=== PATIENT | female | born 1955 | race Caucasian/White ===

== ENCOUNTER 2023-11-18 11:01 | Inpatient (IN) | payer MEDICARE, SELFPAY ==
[2023-11-18] VITALS (11 sets, daily range): BP systolic 80–107; BP diastolic 48–67; PULSE 89–121; RESP 20–35; TEMP 35.3–36.5; O2SAT 97–100; BMI 22.4; BMI 22.6
--- NOTE | ~2023-11-18 | CT_ITS ---
EXAMINATION: CT ANGIOGRAPHY LEGS WITH RUNOFF CLINICAL INFORMATION: Right lower extremity pain. Cold extremity. No palpable pulses. COMPARISON: None available. TECHNIQUE: Axial imaging was performed through the abdomen, pelvis and bilateral lower extremities at the administration of 100 and mL Omnipaque 350 IV contrast. Reformatted coronal, sagittal and MIP images were provided for interpretation. This CT examination was performed using dose optimization techniques as appropriate, variously including the following: *Automated exposure control *Adjustment of mA and/or kV according to patient size (this includes techniques or standardized protocols for targeted exams where dose is matched to indication/reason for exam; i.e. extremities or head) *Use of iterative reconstruction technique DLP: 249 mGy-cm FINDINGS: Vascular findings: Visualized portions of the distal descending thoracic aorta are normal in caliber. The suprarenal abdominal aorta is normal in caliber demonstrating only minimal atherosclerotic disease. The celiac access and superior mesenteric artery demonstrated widely patent takeoff from the aorta. Bilateral renal arteries are widely patent. The infrarenal abdominal aorta is normal in caliber but demonstrates a moderate amount of calcified and noncalcified plaque resulting in mild to moderate intraluminal narrowing within the inferior most aspect of the abdominal aorta. There is a short segment (1.5 cm) complete occlusion involving the proximal most portion of the right common iliac artery. There is reconstitution at the bifurcation of the right internal and external iliac arteries. The right internal iliac artery is severely diseased but patent. The right external iliac artery demonstrates mild to moderate scattered stenoses but is patent. The right common femoral artery is patent but demonstrates mild to moderate stenoses. The right profundus femoris artery is patent. There is moderate to severe stenosis involving the proximal portion of the right superficial femoral artery. The remainder of the right superficial femoral artery appears widely patent. The right popliteal artery is widely patent. There is a three-vessel runoff into the distal calf. There is a mild stenosis of the takeoff of the left common iliac artery. The left internal iliac artery is diseased but patent. There is overall moderate to severe narrowing of a patent left external iliac artery. The left common femoral artery demonstrates mild to moderate stenosis but is patent. Left profundus femoris artery is patent. The left superficial femoral artery demonstrates a localized area of moderate stenosis distally but is otherwise patent. The left popliteal artery is patent. There is a three-vessel runoff of the left lower extremity into the distal calf. Nonvascular findings: Visualized lung bases are well aerated. There is some mild groundglass within the lingula which is nonspecific. A few small cystic foci are noted within the lung bases. There is overall heterogeneous attenuation of the liver with numerous suspected superimposed hepatic lesions. The gallbladder is normal in appearance. The pancreas is normal in appearance. Abnormal appearance of the spleen. The spleen is enlarged measuring approximately 14.3 cm in craniocaudal dimension. There are what appears to be superimposed hypodense lesions within the spleen with a possible perisplenic hematoma laterally. There are bilateral adrenal gland masses measuring 8.3 cm on the right and 3.4 cm on the left. Both kidneys demonstrate several cortical geographic hypodense foci which are nonspecific. There is no gross hydronephrosis of either kidney. Normal caliber loops of small and large bowel. Mild abdominal and moderate pelvic ascites noted. Mild retroperitoneal lymphadenopathy. The bladder is normal in appearance. The uterus is either atrophic or surgically absent. No gross inguinal lymphadenopathy. Diffuse osteopenia. Mild to moderate degenerative changes of the spine. There is a 3 cm soft tissue lesion lateral to the left ninth rib with some associated cortical irregularity of the rib, concerning for a metastatic focus. CT/CT angio abd aorta runoff IMPRESSION: 1. Short segment (1.5 cm) complete occlusion involving the proximal most portion of the right common iliac artery. There is reconstitution at the bifurcation of the right internal and external iliac arteries. 2. Moderate to severe stenosis involving the proximal portion of the right superficial femoral artery. The remainder of the right superficial femoral artery appears widely patent. There is a three-vessel runoff into the distal right calf. 3. Mild stenosis of the takeoff of the left common iliac artery. There is a localized area of moderate stenosis involving the left superficial femoral artery distally but it is otherwise patent. There is a three-vessel runoff of the left lower extremity into the distal left calf. 4. Heterogeneous attenuation of the liver with numerous suspected superimposed hepatic lesions. Findings are concerning for metastatic disease. 5. Bilateral adrenal gland masses concerning for metastatic disease. 6. Abnormal appearance of the spleen with what appears to be superimposed hypodense lesions within the spleen with a possible perisplenic hematoma laterally. Findings are again concerning for metastatic disease. 7. Both kidneys demonstrate several cortical geographic hypodense foci which are nonspecific. Metastatic foci are not excluded. 8. Mild abdominal and moderate pelvic ascites. 9. 3 cm soft tissue lesion lateral to the left ninth rib with some associated cortical irregularity of the rib, concerning for a metastatic focus. Given above findings, PET imaging may be warranted. This Critical Result was discussed with KASHIF Paz at 1:15 PM on November 18, 2023 and it was ascertained that the content and urgency of the report was understood at the time of direct communication.
--- NOTE | ~2023-11-18 | CT_ITS ---
EXAMINATION: CT ANGIOGRAM OF THE CHEST WITH AND WITHOUT CONTRAST (CT PULMONARY ANGIOGRAM FOR PE) CLINICAL INFORMATION: Reason for Exam SOB, known lung mass COMPARISON: None available. TECHNIQUE: Prior to contrast administration, noncontrast localization images were obtained. Subsequently, multidetector volumetric imaging was performed from the thoracic inlet to below the diaphragms following the administration of 65 mL Omnipaque 350 intravenous contrast. No contrast reaction reported Sagittal, coronal, and MIP oblique sagittal reformatted images were obtained on the CT workstation, uploaded to PACS, and reviewed. This CT examination was performed using dose optimization techniques as appropriate, variously including the following: *Automated exposure control *Adjustment of mA and/or kV according to patient size (this includes techniques or standardized protocols for targeted exams where dose is matched to indication/reason for exam; i.e. extremities or head) *Use of iterative reconstruction technique Total exam dose-length product 191 mGy-cm FINDINGS: QUALITY OF STUDY/CONTRAST BOLUS: Satisfactory. PULMONARY ARTERIES: No pulmonary emboli. THORACIC AORTA: No aneurysm. Fibrofatty plaque thrombus protruding into the descending thoracic aorta at multiple levels. LUNG: Large left upper lobe lung mass measuring 8.2 x 8.5 x 8 cm. The mass invades into the adjacent mediastinum at the level of the AP window. Several pulmonary arterial branches are occluded as they pass into or adjacent to this mass. There is a satellite lesion superior to this mass measuring 1.7 x 1.2 x 2.1 cm. Linear tree-in-bud nodules noted inferior and posterior to the main mass. Groundglass opacities surrounding the large left upper lobe mass. Spiculated nodule in the right upper lobe measuring 1.7 x 1.6 x 1.4 cm. This this nodule extends to the major fissure. There is fissural thickening. Centrilobular and paraseptal emphysema. Biapical nodular scarring. PLEURA: No pleural effusion or pneumothorax. MEDIASTINUM: Normal heart size. No pericardial effusion. Enlarged subcarinal lymph node measuring 1.3 cm in short axis. No evidence of septal bowing or right heart strain. CORONARY ARTERY CALCIFICATION: Mild CHEST WALL/AXILLA: No axillary lymphadenopathy. Subcutaneous nodule in measuring 2.1 x 1.6 cm, likely a sebaceous cyst. OSSEOUS STRUCTURES: No acute or suspicious osseous abnormality. UPPER ABDOMEN: Heterogeneous appearance of the liver with innumerable hypodense lesions throughout the liver. Partially visualized bilateral adrenal gland masses measuring 8.3 cm on the right and 3.4 cm on the left. Heterogeneous appearance of the visualized spleen, with what appear to be multiple hypodense lesions. The left kidney is partially visualized and demonstrates multiple peripheral wedge-shaped hypoenhancing regions. No reflux of contrast into the hepatic veins to suggest elevated right heart pressures. CT/CT angio chest PE protocol IMPRESSION: 1. No pulmonary embolism. 2. Findings concerning for metastatic lung cancer including a large left upper lobe mass measuring up to 2.5 cm and invading the mediastinum. Additional nodules noted in the left and right upper lobes. Linear tree-in-bud nodularity inferior to the dominant mass concerning for lymphangitic spread. 3. Findings consistent with solid organ metastases including innumerable hepatic lesions, bilateral adrenal masses, and splenic lesions. 4. Partially visualized left kidney with multiple wedge-shaped hypoenhancing areas peripherally concerning for infarcts. 5. Thrombus versus fibrofatty plaque protruding into the descending thoracic aorta multiple levels. VTE: negative
--- NOTE | ~2023-11-18 | XR_ITS ---
EXAMINATION: PORTABLE CHEST 1 VIEW CLINICAL INFORMATION: cp. COMPARISON: No recent pertinent prior studies are available for comparison. TECHNIQUE: Portable frontal view of the chest was obtained. FINDINGS: There is a large masslike opacity overlying the left upper lobe and left perihilar region. This measures up to 8.6 cm in size. Malignancy would be strongly favored with this appearance. Dedicated CT scan of the chest is warranted to evaluate this further. This is superimposed on chronic appearing coarsened reticular markings otherwise. No significant effusion or overt edema. Mild biapical scarring suggested. Cardiac silhouette within normal limits for size. No acute bony abnormality identified. XR/XR chest 1V IMPRESSION: Large masslike opacity overlying the left upper lobe and left perihilar region. Malignancy would be strongly favored with this appearance. Dedicated CT scan of the chest is warranted to evaluate this further. This is superimposed on chronic appearing changes. This critical result was discussed with Dr Villatoro at 11/18/2023 12:21 PM and it was ascertained that the content and urgency of the report was understood at the time of direct communication.
--- NOTE | 2023-11-18 11:07 | ECG_ITS ---
Test Reason : SEPTIC Blood Pressure : / mmHG Vent. Rate : 102 BPM Atrial Rate : 102 BPM P-R Int : 132 ms QRS Dur : 056 ms QT Int : 366 ms P-R-T Axes : 088 081 083 degrees QTc Int : 477 ms Poor data quality Sinus tachycardia with Premature supraventricular complexes Nonspecific ST abnormality Abnormal ECG No previous ECGs available Repeat EKG Referred By: Generic ED Physician Electronically Signed By:CHANO OREILLY MD
--- NOTE | 2023-11-18 11:24 | ED_ITS ---
HPI - General Adult General Chief complaint: Nausea/Vomiting/Diarrhea Stated complaint: ABD PAIN VOMITING NAUSEA COUGH Time Seen by Provider: 11/18/23 11:17 Source: patient and EMS Mode of arrival: EMS History of Present Illness HPI narrative: 68-year-old female, current everyday smoker, unexplained weight loss, otherwise denies any past medical history and denies any prescription medications who comes in with nausea, vomiting and significant right lower leg pain and as per EMS low blood pressure. Related Data Allergies Allergy/AdvReac Type Severity Reaction Status Date / Time No Known Allergies Allergy Verified 11/18/23 11:17 Review of Systems 2 Review of Systems: Pertinent positives and negatives as stated in HPI [facility] Past Medical History Source: nursing notes reviewed Social History Social History Smoked in Last 30 Days: Yes Advance Directives: No Advance Directives Information Provided: Yes Physical Exam ED Vital Signs: Vital Signs - 24 hr 11/18/23 11:19 11/18/23 12:25 11/18/23 12:57 Temperature 95.5 F L Pulse Rate 121 H 89 99 Respiratory Rate 20 24 H Blood Pressure 85/53 L 101/60 107/64 Pulse Oximetry 99 Oxygen Delivery Method Room Air Oxygen Flow Rate 11/18/23 13:07 11/18/23 13:20 11/18/23 13:28 Temperature 97.5 F 97.7 F Pulse Rate 98 113 H 105 H Respiratory Rate 28 H 27 H Blood Pressure 90/58 L 96/63 85/52 L Pulse Oximetry 98 100 Oxygen Delivery Method Room Air Room Air Oxygen Flow Rate 11/18/23 13:55 11/18/23 14:36 11/18/23 14:51 Temperature 97.5 F 97.0 F 95.9 F L Pulse Rate 105 H 105 H 104 H Respiratory Rate 35 H 22 H 28 H Blood Pressure 105/67 96/56 L 84/48 L Pulse Oximetry 97 100 100 Oxygen Delivery Method Nasal Cannula Nasal Cannula Nasal Cannula Oxygen Flow Rate 2 2 2 BMI result Body Mass Index 22.4 VITAL SIGNS: Reviewed. GENERAL: Cachectic, in no moderate distress. HEAD: Normocephalic/atraumatic EYES: PERRLA, EOMI EARS: Ext canals without abnormality NOSE: Nares patent bilateral OROPHARYNX: no oral lesions noted, posterior pharynx clear NECK: Supple, no adenopathy LUNGS: Normal breath sounds. No adventitious sounds or accessory muscle use. SpO2<99> CARDIOVASCULAR: Regular rate and rhythm without noted murmurs ABDOMEN: Soft, non-tender, non-distended with bowel sounds. MUSCULOSKELETAL: No tenderness, deformities, or effusions noted on gross inspection. EXTREMITIES: No cyanosis, clubbing or edema. Both lower extremities are cool to touch, right greater than left, unable to palpate pulses and on evaluation with Doppler unable to obtain AT/PT SKIN: Inspection of the skin reveals no rashes NEUROLOGIC: Alert and oriented x 4. Strength and sensation to light touch were grossly intact x 4. Medications Administered Discontinued Medications Generic Name Dose Route Start Last Admin Trade Name Freq PRN Reason Stop Dose Admin Fentanyl 25 mcg 11/18/23 13:07 11/18/23 13:17 Fentanyl Citrate/Pf 100 Mcg/2 Ml Vial IVPUSH 11/18/23 13:08 25 mcg ONCE ONE Administration Protocol Cefepime HCl 1 gm/ Sodium 50 mls @ 100 mls/hr 11/18/23 11:17 11/18/23 12:11 Chloride IV 11/18/23 11:46 Infused ONCE ONE Infusion Sodium Chloride 1,722 mls @ 1,722 mls/hr 11/18/23 11:17 11/18/23 13:19 Ns 30 ml/kg infuse over 1 hr (1722 ml) 11/18/23 12:16 Infused IV Infusion .Q1H STA Sodium Chloride 1,000 mls @ 999 mls/hr 11/18/23 13:45 11/18/23 14:36 Ns IV 11/18/23 14:45 Infused .Q1H1M VIKAS Infusion Iohexol 100 ml 11/18/23 12:16 11/18/23 12:16 Iohexol 350 Mg/Ml 100 Ml Infus..Btl IV 11/18/23 12:17 100 ml ONCE ONE Administration Iohexol 100 ml 11/18/23 13:54 11/18/23 13:55 Iohexol 350 Mg/Ml 100 Ml Infus..Btl IV 11/18/23 13:55 65 ml ONCE ONE Administration Midodrine 10 mg 11/18/23 14:54 11/18/23 15:03 Midodrine Hcl 10 Mg Tablet PO 11/18/23 14:55 10 mg ONCE ONE Administration Ondansetron HCl 4 mg 11/18/23 13:41 11/18/23 13:57 Ondansetron Hcl 4 Mg/2 Ml Vial IVPUSH 11/18/23 13:42 4 mg ONCE ONE Administration Medical Decision Making Medical Decision Making [facility] Narrative: 68-year-old female with history and clinical presentation, DDX: Concerns for ischemic limb or intra-abdominal catastrophe will get stat CT abdominal aorta with runoff, possibility of severe sepsis and patient has received sepsis fluid bolus as well as antibiotics. I reviewed all investigations and hematologic indices are significant for leukocytosis and left shift but unclear whether not this is strictly due to infectious etiology versus current underlying metastatic cancer, patient also has a microcytic anemia without overt signs of bleeding, patient's platelets are slightly elevated. Coagulation studies are within normal limits. VBG does not demonstrate any respiratory acidosis. Chemistry indices do not demonstrate an TC and there is a mild low potassium level with normal magnesium levels and significant lactic acidosis likely a combination of vascular compromise, low blood pressure. Urinalysis is negative for urinary tract infection or hematuria. Viral testing is negative for influenza/RSV/COVID-19. 1315: Chest x-ray demonstrates a large left upper lobe chest mass with perihilar involvement. 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 The initial pain may have been secondary to a low-flow state/claudication symptom secondary to patient's hypotension. However, I have reached out to vascular surgery at this time. Will proceed also with CT angio for PE protocol. 1322: I had a discussion with the patient and her at bedside in the presence of nursing staff to discuss the CT scan findings, the generalized prognosis, the extent of the metastasis and provided them information regarding supportive services such as palliative services and hospice care services depending on what they decide. They were encouraged to discuss it together. 1333: I contacted Dr. Sutton. 1344: CT scan also being read as being significant for concern of perisplenic hematoma, patient has no reported history of falls. Patient is not likely to be a candidate for anticoagulation. 1424: Dr. Sutton feels this is likely chronic, recommends aspirin and outpatient follow-up. 1440: I went in and spoke with the family once again, after further discussion, patient is noted to have low blood pressure in still is in pain, the decision is that patient wishes to go home with hospice care, will attempt to give patient midodrine as well as obtain consultation for case management/hospice. At this time patient is comfort care, hospice services, I did discuss the case with inpatient hospitalist who is agreeable for admission to help manage patient's pain until hospice can make arrangements. 1505: I confirmed with patient and family that patient is DNR/DNI. 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 Please see the discussion above 11/18/23 11:27 11/18/23 11:26 Labs: Lab Results 11/18/23 11/18/23 11/18/23 Range/Units 11:25 11:26 11:27 WBC 16.9 H (4.8-10.8) X10*3/uL RBC 3.56 L (4.20-5.50) X10*6/uL Hgb 8.4 L (12.0-16.0) g/dl Hct 28.3 L (37.0-47.0) % MCV 79.5 L (80.0-98.0) fL MCH 23.6 L (27.0-33.0) pg MCHC 29.7 L (31.0-35.0) g/dl RDW 16.6 H (11.0-16.0) % Plt Count 476 H (160-400) X10*3/uL MPV 10.5 (9.4-12.3) fL Immature Gran % (Auto) 0.8 H (0.0-0.4) % Neut % (Auto) 82.5 H (45-73) % Lymph % (Auto) 10.1 L (20-40) % [place] % (Auto) 5.7 (2-11) % Eos % (Auto) 0.5 (0-4) % Baso % (Auto) 0.4 (0-2) % Lymph # (Auto) 1.7 (1.2-4.9) X10*3/uL [place] # (Auto) 1.0 (0.1-1.2) X10*3/uL Eos # (Auto) 0.1 (0.0-0.4) X10*3/uL Baso # (Auto) 0.1 (0.0-0.2) X10*3/uL Abs Immat Gran (auto) 0.14 H (0.00-0.03) X10*3/uL Absolute Neuts (auto) 13.9 H (2.0-8.3) x10*3/uL Absolute Nucleated RBC 0.000 (0.0-0.012) X10*3/uL Nucleated RBC % (auto) 0.0 (0.0-0.2) /100WBC PT 12.7 (11.1-13.3) SEC INR 1.0 (0.9-1.1) APTT (26.0-36.8) SEC D-Dimer High Sensitivty 3259 NG/ML VBG pH (7.32-7.43) VBG pCO2 mmHg VBG pO2 mmHg VBG HCO3 (22-26) mmol/L VBG O2 Saturation % VBG Base Excess mmol/L Sodium 141 (135-145) mmol/L Potassium 3.2 L (3.3-5.1) mmol/L Chloride 104 (96-108) mmol/L Carbon Dioxide 21 L (22-29) mmol/L Anion Gap 19 (12-20) BUN 13 (9-16) mg/dL Creatinine 1.08 (0.5-1.4) mg/dL Estim Creat Clear Calc 41.2 Estimated GFR 50 Random Glucose 156 H (60-115) mg/dL Lactic Acid 9.0 H* (0.5-2.0) mmol/L Lactic Acid F/U @ 2Hr (0.5-2.0) mmol/L Calcium 10.0 (8.4-10.2) mg/dL Magnesium 2.2 (1.6-2.6) mg/dL Total Bilirubin 0.3 (0.0-1.0) mg/dL AST 33 H (5-31) U/L ALT 16 (0-31) U/L Alkaline Phosphatase 210 H (39-117) U/L Troponin I High Sens 8.7 (<3.5-17.0) ng/L B-Natriuretic Peptide 68 (<100) pg/mL Total Protein 7.2 (6.5-8.0) g/dL Albumin 3.3 L (3.5-5.0) g/dL Urine Color Urine Appearance Urine pH (5.0-9.0) Ur Specific [place] (1.005-1.025) Urine Protein (Neg-Trace) mg/dL Urine Glucose (UA) (Negative) mg/dL Urine Ketones (Negative) mg/dL Urine Blood (Negative) Urine Nitrite (Negative) Ur Leukocyte Esterase (Negative) Urine RBC (0-2) /HPF Urine WBC (0-5) /HPF Ur Squamous Epith Cells (0-2) /HPF Urine Bacteria (None Seen) Hyaline Casts (0-2) /LPF Influenza Type A (PCR) NEGATIVE (Negative) Influenza Type B (PCR) NEGATIVE (Negative) RSV RNA Qual (PCR) NEGATIVE (Negative) SARS-CoV-2 RNA (RT-PCR) NEGATIVE (Negative) Blood Type Antibody Screen 11/18/23 11/18/23 11/18/23 Range/Units 11:39 12:14 12:51 WBC (4.8-10.8) X10*3/uL RBC (4.20-5.50) X10*6/uL Hgb (12.0-16.0) g/dl Hct (37.0-47.0) % MCV (80.0-98.0) fL MCH (27.0-33.0) pg MCHC (31.0-35.0) g/dl RDW (11.0-16.0) % Plt Count (160-400) X10*3/uL MPV (9.4-12.3) fL Immature Gran % (Auto) (0.0-0.4) % Neut % (Auto) (45-73) % Lymph % (Auto) (20-40) % [place] % (Auto) (2-11) % Eos % (Auto) (0-4) % Baso % (Auto) (0-2) % Lymph # (Auto) (1.2-4.9) X10*3/uL [place] # (Auto) (0.1-1.2) X10*3/uL Eos # (Auto) (0.0-0.4) X10*3/uL Baso # (Auto) (0.0-0.2) X10*3/uL Abs Immat Gran (auto) (0.00-0.03) X10*3/uL Absolute Neuts (auto) (2.0-8.3) x10*3/uL Absolute Nucleated RBC (0.0-0.012) X10*3/uL Nucleated RBC % (auto) (0.0-0.2) /100WBC PT (11.1-13.3) SEC INR (0.9-1.1) APTT 27.6 (26.0-36.8) SEC D-Dimer High Sensitivty NG/ML VBG pH 7.31 L (7.32-7.43) VBG pCO2 43 mmHg VBG pO2 45 mmHg VBG HCO3 22 (22-26) mmol/L VBG O2 Saturation 62.0 % VBG Base Excess -3.8 mmol/L Sodium (135-145) mmol/L Potassium (3.3-5.1) mmol/L Chloride (96-108) mmol/L Carbon Dioxide (22-29) mmol/L Anion Gap (12-20) BUN (9-16) mg/dL Creatinine (0.5-1.4) mg/dL Estim Creat Clear Calc Estimated GFR Random Glucose (60-115) mg/dL Lactic Acid (0.5-2.0) mmol/L Lactic Acid F/U @ 2Hr (0.5-2.0) mmol/L Calcium (8.4-10.2) mg/dL Magnesium (1.6-2.6) mg/dL Total Bilirubin (0.0-1.0) mg/dL AST (5-31) U/L ALT (0-31) U/L Alkaline Phosphatase (39-117) U/L Troponin I High Sens (<3.5-17.0) ng/L B-Natriuretic Peptide (<100) pg/mL Total Protein (6.5-8.0) g/dL Albumin (3.5-5.0) g/dL Urine Color Yellow Urine Appearance Clear Urine pH 7.5 (5.0-9.0) Ur Specific [place] 1.025 (1.005-1.025) Urine Protein 100 (2+) H (Neg-Trace) mg/dL Urine Glucose (UA) 100 H (Negative) mg/dL Urine Ketones Negative (Negative) mg/dL Urine Blood Negative (Negative) Urine Nitrite Negative (Negative) Ur Leukocyte Esterase Negative (Negative) Urine RBC 0-2 (0-2) /HPF Urine WBC 0-5 (0-5) /HPF Ur Squamous Epith Cells 3-5 (0-2) /HPF Urine Bacteria None Seen (None Seen) Hyaline Casts 0-2 (0-2) /LPF Influenza Type A (PCR) (Negative) Influenza Type B (PCR) (Negative) RSV RNA Qual (PCR) (Negative) SARS-CoV-2 RNA (RT-PCR) (Negative) Blood Type O Negative Antibody Screen NEGATIVE 11/18/23 Range/Units 14:20 WBC (4.8-10.8) X10*3/uL RBC (4.20-5.50) X10*6/uL Hgb (12.0-16.0) g/dl Hct (37.0-47.0) % MCV (80.0-98.0) fL MCH (27.0-33.0) pg MCHC (31.0-35.0) g/dl RDW (11.0-16.0) % Plt Count (160-400) X10*3/uL MPV (9.4-12.3) fL Immature Gran % (Auto) (0.0-0.4) % Neut % (Auto) (45-73) % Lymph % (Auto) (20-40) % [place] % (Auto) (2-11) % Eos % (Auto) (0-4) % Baso % (Auto) (0-2) % Lymph # (Auto) (1.2-4.9) X10*3/uL [place] # (Auto) (0.1-1.2) X10*3/uL Eos # (Auto) (0.0-0.4) X10*3/uL Baso # (Auto) (0.0-0.2) X10*3/uL Abs Immat Gran (auto) (0.00-0.03) X10*3/uL Absolute Neuts (auto) (2.0-8.3) x10*3/uL Absolute Nucleated RBC (0.0-0.012) X10*3/uL Nucleated RBC % (auto) (0.0-0.2) /100WBC PT (11.1-13.3) SEC INR (0.9-1.1) APTT (26.0-36.8) SEC D-Dimer High Sensitivty NG/ML VBG pH (7.32-7.43) VBG pCO2 mmHg VBG pO2 mmHg VBG HCO3 (22-26) mmol/L VBG O2 Saturation % VBG Base Excess mmol/L Sodium (135-145) mmol/L Potassium (3.3-5.1) mmol/L Chloride (96-108) mmol/L Carbon Dioxide (22-29) mmol/L Anion Gap (12-20) BUN (9-16) mg/dL Creatinine (0.5-1.4) mg/dL Estim Creat Clear Calc Estimated GFR Random Glucose (60-115) mg/dL Lactic Acid (0.5-2.0) mmol/L Lactic Acid F/U @ 2Hr 6.2 H* (0.5-2.0) mmol/L Calcium (8.4-10.2) mg/dL Magnesium (1.6-2.6) mg/dL Total Bilirubin (0.0-1.0) mg/dL AST (5-31) U/L ALT (0-31) U/L Alkaline Phosphatase (39-117) U/L Troponin I High Sens (<3.5-17.0) ng/L B-Natriuretic Peptide (<100) pg/mL Total Protein (6.5-8.0) g/dL Albumin (3.5-5.0) g/dL Urine Color Urine Appearance Urine pH (5.0-9.0) Ur Specific [place] (1.005-1.025) Urine Protein (Neg-Trace) mg/dL Urine Glucose (UA) (Negative) mg/dL Urine Ketones (Negative) mg/dL Urine Blood (Negative) Urine Nitrite (Negative) Ur Leukocyte Esterase (Negative) Urine RBC (0-2) /HPF Urine WBC (0-5) /HPF Ur Squamous Epith Cells (0-2) /HPF Urine Bacteria (None Seen) Hyaline Casts (0-2) /LPF Influenza Type A (PCR) (Negative) Influenza Type B (PCR) (Negative) RSV RNA Qual (PCR) (Negative) SARS-CoV-2 RNA (RT-PCR) (Negative) Blood Type Antibody Screen Independent Interpretation I performed an independent interpretation of an: EKG Interpretation: Significant artifact but evidence as sinus tachycardia, no gross STEMI appreciated and patient has no complaints of chest pain, DE/QRS/QTC is within normal limits. Radiology Impression Discussion of test interpretation with radiology: I have reviewed the radiologist's reading. Radiologist Impression: Please see the discussion above Critical Care Time Critical Care Time Critical Care Time: Yes Total Critical Care Time: 120 Attestation: I personally attest to this time spent taking care of the patient. Discharge Plan Discharge Clinical Impression: Severe sepsis, Femoral artery occlusion, right, Metastatic cancer, Perisplenic hematoma, Lung mass, Hypotension, Intractable pain Patient Disposition: Admitted As Inpatient
[2023-11-18] MEDS: SODIUM CHLORIDE 1722 ML IV (11:29)
[2023-11-18 11:32] LABS: MANUAL DIFF FLAG NO
[2023-11-18] MEDS: cefEPime HCl 1 GM in 0.9 % Sodium Chloride 50 ML IV (11:32)
[2023-11-18 11:35] LABS: Basophils Absolute Auto 0.1 X10*3/uL (0.0-0.2); Basophils Percent Auto 0.4 % (0-2); Eosinophils Absolute Auto 0.1 X10*3/uL (0.0-0.4); Eosinophils Percent Auto 0.5 % (0-4); Hematocrit 28.3 % (37.0-47.0); Hemoglobin 8.4 g/dl (12.0-16.0); Imm Gran Abs Auto 0.14 X10*3/uL (0.00-0.03); Imm Gran Pct Auto 0.8 % (0.0-0.4); Lymphocytes Absolute Auto 1.7 X10*3/uL (1.2-4.9); Lymphocytes Percent Auto 10.1 % (20-40); Mean Corpuscular HGB Conc 29.7 g/dl (31.0-35.0); Mean Corpuscular Hemoglobin 23.6 pg (27.0-33.0); Mean Corpuscular Volume 79.5 fL (80.0-98.0); Mean Platelet Volume 10.5 fL (9.4-12.3); Monocytes Percent Auto 5.7 % (2-11); Neutrophils Absolute Auto 13.9 x10*3/uL (2.0-8.3); Neutrophils Percent Auto 82.5 % (45-73); Platelet Count 476 X10*3/uL (160-400); Red Blood Count 3.56 X10*6/uL (4.20-5.50); Red Cell Distribution Width 16.6 % (11.0-16.0); White Blood Count 16.9 X10*3/uL (4.8-10.8)
[2023-11-18 11:41] LABS: Prothrombin Time 12.7 SEC (11.1-13.3)
[2023-11-18 11:43] LABS: D Dimer High Sensitivity 3259 NG/ML
[2023-11-18 11:45] LABS: Venous Blood Gas Refer to POC result
[2023-11-18 11:46] LABS: VBG Base Excess -3.8 mmol/L; VBG HCO3 22 mmol/L (22-26); VBG pCO2 43 mmHg; VBG pH 7.31 (7.32-7.43); VBG pO2 45 mmHg
[2023-11-18 12:01] LABS: B Type Natriuretic Peptide 68 pg/mL (<100)
[2023-11-18 12:15] LABS: Influenza A PCR NEGATIVE (Negative); Influenza B PCR NEGATIVE (Negative); Resp Syncy Virus RNA Qual PCR NEGATIVE (Negative); SARS COV2 PCR INHOUSE NEGATIVE (Negative)
[2023-11-18] MEDS: iohexoL 350 MG/ML 100 ML INFUS..BTL IV ×2 (12:16→13:55)
[2023-11-18 12:22] LABS: Appearance Urine Clear; Color Urine Yellow; Glucose Urine UA 100 mg/dL (Negative); Leukocyte Esterase Urine Negative (Negative); Nitrite Urine Negative (Negative); PH 7.5 (5.0-9.0); Specific Gravity - Urine 1.025 (1.005-1.025); UMIC TRIGGER UACC YES; Urine Blood Negative (Negative); Urine Ketones Negative (Negative); Urine Protein 100 (2+) mg/dL (Neg-Trace)
[2023-11-18 12:25] LABS: Troponin-I High Sensitivity 8.7 ng/L (<3.5-17.0)
--- NOTE | 2023-11-18 12:27 | PC.NURSE ---
Patient BIBA, c/o N/V/ leg pain. Pressures low 80/60 for EMS, initially pressure 80/53, responding well to fluids pressure now 101/60, AxO x 4, temp sensing gordillo placed, continues to be hypothermic, bear hugger remains in place.
[2023-11-18 12:35] LABS: Bacteria Urine None Seen (None Seen); Hyaline Casts Urine 0-2 /LPF (0-2); RBC Urine 0-2 /HPF (0-2); WBC Urine 0-5 /HPF (0-5)
[2023-11-18 12:39] LABS: Alanine Aminotransferase 16 U/L (0-31); Albumin Level 3.3 g/dL (3.5-5.0); Alkaline Phosphatase 210 U/L (39-117); Anion Gap 19 (12-20); Aspartate Amino Transferase 33 U/L (5-31); Bilirubin Total 0.3 mg/dL (0.0-1.0); Blood Urea Nitrogen 13 mg/dL (9-16); Carbon Dioxide 21 mmol/L (22-29); Chloride 104 mmol/L (96-108); Creatinine Clr Calc Pharmacy 41.2; Estimated Glomerular Filt Rate 50; Glucose Random 156 mg/dL (60-115); Magnesium 2.2 mg/dL (1.6-2.6); Potassium 3.2 mmol/L (3.3-5.1); Sodium 141 mmol/L (135-145); Total Protein 7.2 g/dL (6.5-8.0)
[2023-11-18 13:14] LABS: Partial Thromboplastin Time 27.6 SEC (26.0-36.8)
[2023-11-18] MEDS: fentaNYL citrate/PF 100 MCG/2 ML VIAL 25 MCG IVPUSH (13:17)
--- NOTE | 2023-11-18 13:27 | PC.NURSE ---
Patient continues to complain of intermittent pain, nausea/ retching at times. medicated per mar
[2023-11-18 13:30] LABS: Reflex Lactate? Lactic Acid Added
[2023-11-18] MEDS: ondansetron HCL 4 MG/2 ML VIAL IVPUSH (13:57)
[2023-11-18] MEDS: 0.9 % Sodium Chloride 1,000 ML 999 ML IV (13:57)
[2023-11-18 14:42] LABS: ~Lactic Acid-LAB USE ONLY 6.2 mmol/L (0.5-2.0)
--- NOTE | 2023-11-18 15:00 | PC.NURSE ---
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
[2023-11-18] MEDS: Midodrine HCl 10 MG TABLET PO (15:03)
--- NOTE | 2023-11-18 15:35 | PHA.MEDREC ---
Pharmacy Consult ? Medication Reconciliation Pharmacy has completed the medication reconciliation. confirmed with family and no claim history.
--- NOTE | 2023-11-18 15:40 | P.HPHOSP_ITS ---
History of Present Illness Date of Service: 11/18/23 Chief Complaint: nausea, vomiting 68 year old women with no significant medical history as she has not been to see a medical provider in over 15+ years. apparently it has been a few months and her energy has declined. in July she had a respiratory illness, unknown because she did not have nay testing done, and since then has been less energetic. She quit smoking for a short time, but picked it back up again. She also used marijuana but no alcohol. She was noted to be hypotensive and had cool lower extremities. Vascular surgeon was notified of this and aorta CTA showed femoral artery occlusion.Chest Ct showed large left upper lobe mass invading the mediastinum with additional nodules in the left and right upper lobes, linear tree-in-bud nodularity inferior to the dominant mass concerning for lymphangitic spread. Findings also consistent with solid organ metastasis including innumerable hepatic lesions, bilateral adrenal masses and splenic lesions. She was noted to be hypothermic, tachycardic and hypotensive. Treatment was initially started with antibiotics, IV fluids but after all diagnostic imaging studies returned it was found that the patient likely has severe malignancy. The family decided that they wanted the patient to be hospice/comfort measures only. The patient somnolent during the interview with her daughter and . The plan will be to admit patient for comfort measures only, supportive care. Review of Systems 2 Review of Systems: Yes Unobtainable due to mental condition PENDING SALE TO [facility] Medical History (Updated 11/18/23 @ 16:16 by Chantale Griffin NP) No pertinent past medical history Pertinent family history: Cancer Surgical History (Updated 11/18/23 @ 16:16 by Chantale Griffin NP) H/O tubal ligation Social History Smoked in Last 30 Days: Yes Advance Directives: No Advance Directives Information Provided: Yes Meds Allergies Allergy/AdvReac Type Severity Reaction Status Date / Time No Known Allergies Allergy Verified 11/18/23 11:17 Active Medications: Current Medications Acetaminophen (Acetaminophen 325 Mg Tablet) 650 mg PO Q4H PRN PRN Reason: Fever >/= 100, Pain, mild 1-3 Docusate Sodium (Docusate Sodium 100 Mg Capsule) 100 mg PO BEDTIME VIKAS Hydromorphone HCl (Hydromorphone Hcl 0.5 Mg/0.5 Ml Syringe) 0.25 mg IVPUSH Q1H PRN PRN Reason: Pain, Severe (Pain Scale 7-10) Ondansetron HCl (Ondansetron Odt 4 Mg Tab.Rapdis) 4 mg TRANSLINGU Q8H PRN PRN Reason: Nausea and Vomiting Home Medications Medication Instructions Recorded Confirmed Last Taken Type No Known Home Meds 11/18/23 11/18/23 Unknown History Physical Exam 2 Vital Signs and Narrative: Vital Signs: Last Vital Signs Temp 95.9 F L 11/18/23 14:51 Pulse 104 H 11/18/23 14:51 Resp 28 H 11/18/23 14:51 BP 84/48 L 11/18/23 14:51 Pulse Ox 100 11/18/23 14:51 O2 Del Method Nasal Cannula 11/18/23 14:51 O2 Flow Rate 2 11/18/23 14:51 BMI result Body Mass Index 22.4 Appearing in no acute distress, somnolent head is normocephalic atraumatic skin jaundice neck is supple no lymphadenopathy lung sounds are diminahed heart regular rate rhythm positive bowel sounds neuro patient is somnolent Results Labs 11/18/23 11:27 11/18/23 11:26 Labs: Laboratory Results - last 24 hr 11/18/23 11/18/23 11/18/23 11:25 11:26 11:27 MCV 79.5 L MCH 23.6 L MCHC 29.7 L RDW 16.6 H Plt Count 476 H MPV 10.5 Immature Gran % (Auto) 0.8 H Neut % (Auto) 82.5 H Lymph % (Auto) 10.1 L [place] % (Auto) 5.7 Eos % (Auto) 0.5 Baso % (Auto) 0.4 Lymph # (Auto) 1.7 [place] # (Auto) 1.0 Eos # (Auto) 0.1 Baso # (Auto) 0.1 Abs Immat Gran (auto) 0.14 H Absolute Neuts (auto) 13.9 H Absolute Nucleated RBC 0.000 Nucleated RBC % (auto) 0.0 PT 12.7 INR 1.0 APTT D-Dimer High Sensitivty 3259 VBG pH VBG pCO2 VBG pO2 VBG HCO3 VBG O2 Saturation VBG Base Excess Anion Gap 19 Estim Creat Clear Calc 41.2 Estimated GFR 50 Random Glucose 156 H Lactic Acid 9.0 H* Lactic Acid F/U @ 2Hr Calcium 10.0 Magnesium 2.2 Total Bilirubin 0.3 AST 33 H ALT 16 Alkaline Phosphatase 210 H Troponin I High Sens 8.7 B-Natriuretic Peptide 68 Total Protein 7.2 Albumin 3.3 L Urine Color Urine Appearance Urine pH Ur Specific [place] Urine Protein Urine Glucose (UA) Urine Ketones Urine Blood Urine Nitrite Ur Leukocyte Esterase Urine RBC Urine WBC Ur Squamous Epith Cells Urine Bacteria Hyaline Casts Influenza Type A (PCR) NEGATIVE Influenza Type B (PCR) NEGATIVE RSV RNA Qual (PCR) NEGATIVE SARS-CoV-2 RNA (RT-PCR) NEGATIVE Blood Type Antibody Screen 11/18/23 11/18/23 11/18/23 11:39 12:14 12:51 MCV MCH MCHC RDW Plt Count MPV Immature Gran % (Auto) Neut % (Auto) Lymph % (Auto) [place] % (Auto) Eos % (Auto) Baso % (Auto) Lymph # (Auto) [place] # (Auto) Eos # (Auto) Baso # (Auto) Abs Immat Gran (auto) Absolute Neuts (auto) Absolute Nucleated RBC Nucleated RBC % (auto) PT INR APTT 27.6 D-Dimer High Sensitivty VBG pH 7.31 L VBG pCO2 43 VBG pO2 45 VBG HCO3 22 VBG O2 Saturation 62.0 VBG Base Excess -3.8 Anion Gap Estim Creat Clear Calc Estimated GFR Random Glucose Lactic Acid Lactic Acid F/U @ 2Hr Calcium Magnesium Total Bilirubin AST ALT Alkaline Phosphatase Troponin I High Sens B-Natriuretic Peptide Total Protein Albumin Urine Color Yellow Urine Appearance Clear Urine pH 7.5 Ur Specific [place] 1.025 Urine Protein 100 (2+) H Urine Glucose (UA) 100 H Urine Ketones Negative Urine Blood Negative Urine Nitrite Negative Ur Leukocyte Esterase Negative Urine RBC 0-2 Urine WBC 0-5 Ur Squamous Epith Cells 3-5 Urine Bacteria None Seen Hyaline Casts 0-2 Influenza Type A (PCR) Influenza Type B (PCR) RSV RNA Qual (PCR) SARS-CoV-2 RNA (RT-PCR) Blood Type O Negative Antibody Screen NEGATIVE 11/18/23 14:20 MCV MCH MCHC RDW Plt Count MPV Immature Gran % (Auto) Neut % (Auto) Lymph % (Auto) [place] % (Auto) Eos % (Auto) Baso % (Auto) Lymph # (Auto) [place] # (Auto) Eos # (Auto) Baso # (Auto) Abs Immat Gran (auto) Absolute Neuts (auto) Absolute Nucleated RBC Nucleated RBC % (auto) PT INR APTT D-Dimer High Sensitivty VBG pH VBG pCO2 VBG pO2 VBG HCO3 VBG O2 Saturation VBG Base Excess Anion Gap Estim Creat Clear Calc Estimated GFR Random Glucose Lactic Acid Lactic Acid F/U @ 2Hr 6.2 H* Calcium Magnesium Total Bilirubin AST ALT Alkaline Phosphatase Troponin I High Sens B-Natriuretic Peptide Total Protein Albumin Urine Color Urine Appearance Urine pH Ur Specific [place] Urine Protein Urine Glucose (UA) Urine Ketones Urine Blood Urine Nitrite Ur Leukocyte Esterase Urine RBC Urine WBC Ur Squamous Epith Cells Urine Bacteria Hyaline Casts Influenza Type A (PCR) Influenza Type B (PCR) RSV RNA Qual (PCR) SARS-CoV-2 RNA (RT-PCR) Blood Type Antibody Screen Imaging Radiologist's Impressions: Impressions Chest X-Ray 11/18/23 11:59 IMPRESSION: Large masslike opacity overlying the left upper lobe and left perihilar region. Malignancy would be strongly favored with this appearance. Dedicated CT scan of the chest is warranted to evaluate this further. This is superimposed on chronic appearing changes. This critical result was discussed with Dr Villatoro at 11/18/2023 12:21 PM and it was ascertained that the content and urgency of the report was understood at the time of direct communication. Aorta w/Runoff CTA 11/18/23 12:27 IMPRESSION: 1. Short segment (1.5 cm) complete occlusion involving the proximal most portion of the right common iliac artery. There is reconstitution at the bifurcation of the right internal and external iliac arteries. 2. Moderate to severe stenosis involving the proximal portion of the right superficial femoral artery. The remainder of the right superficial femoral artery appears widely patent. There is a three-vessel runoff into the distal right calf. 3. Mild stenosis of the takeoff of the left common iliac artery. There is a localized area of moderate stenosis involving the left superficial femoral artery distally but it is otherwise patent. There is a three-vessel runoff of the left lower extremity into the distal left calf. 4. Heterogeneous attenuation of the liver with numerous suspected superimposed hepatic lesions. Findings are concerning for metastatic disease. 5. Bilateral adrenal gland masses concerning for metastatic disease. 6. Abnormal appearance of the spleen with what appears to be superimposed hypodense lesions within the spleen with a possible perisplenic hematoma laterally. Findings are again concerning for metastatic disease. 7. Both kidneys demonstrate several cortical geographic hypodense foci which are nonspecific. Metastatic foci are not excluded. 8. Mild abdominal and moderate pelvic ascites. 9. 3 cm soft tissue lesion lateral to the left ninth rib with some associated cortical irregularity of the rib, concerning for a metastatic focus. Given above findings, PET imaging may be warranted. This Critical Result was discussed with KASHIF Paz at 1:15 PM on November 18, 2023 and it was ascertained that the content and urgency of the report was understood at the time of direct communication. Assessment and Plan (1) Hypotension: Status: Acute (2) Lung mass: Status: Acute Plan 68 year old women presenting to the ED with weight loss, nausea, vomiting, RLE pain and hypotension. Patient has not seen a medical provider for more than 15 years and is found to have lung mass with malignany to other solid organs including liver, spleen, adrenals. 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
--- NOTE | 2023-11-18 15:44 | MHC.CM.PN ---
Rec'd CM consult from ED provider for hospice referral. CM met with patient, spouse and daughter at bedside. Goal is home w/ spouse and hospice. First choice is [facility]. Referral sent via careport. Patient completed HCP naming spouse Saul as health care agent. Uploaded to [facility]. Patient to be admitted for pain management while awaiting hospice.
[2023-11-18] MEDS: HYDROmorphone HCl 0.5 MG/0.5 ML SYRINGE 0.25 MG IVPUSH ×2 (15:47→17:37)
[2023-11-18 16:22] LABS: Reflex Lactate? 2 Y
[2023-11-18] MEDS: Scopolamine 1.5 MG PATCH.TD.3 TRANSDERMA (17:10)
[2023-11-18] MEDS: LORazepam 2 MG/ML VIAL 0.5 MG IVPUSH (17:11)
--- NOTE | 2023-11-18 17:51 | PC.NURSE ---
Pt up from ED, MEDIA JOB TITLES, Plan Hospice tomorrow, home if applicable. Daughter at bedside, Pt Spouse to come in later, identify home. Pt is unable to answer questions at this time. Pain medication given IV. Ativan given in ED. Scopolamine patch to right side behind ear. Continue to monitor for comfort and family needs.
--- NOTE | 2023-11-18 18:38 | PC.NURSE ---
Skin check not assessed, large family presence in the room, respecting patients dignity not to disrobe.
--- NOTE | 2023-11-18 19:16 | PM.EVENT ---
Event Note Date of Service: 11/18/23 Event Note: I was called to patient's bedside to pronounce the patient. No spontaneous movements were present. There was no response to verbal or tactile stimulus. Pupils were mid dilated and fixed. No breath sounds were appreciated over either lung field. No carotid pulses were palpable. No heart sounds were auscultated over entire precordium. Patient was on comfort measures only. Patient pronounced on 11/18/2023 at 19:10. Condolences offered to family members at bedside Time Spent With Patient Time: Total time managing care of this patient today ____ minutes.
--- NOTE | 2023-11-19 07:11 | P.DN_ITS ---
Discharge Sum: Prov Provider Primary care physician: None Physician Consults: 11/18/23 16:22 Consult to Hospice Routine Comment: Discharge Sum: Diag Contributing Factors (1) Hypotension: (2) Lung mass: Discharge Sum: Summary Date and Time Date of admission: 11/18/23 16:22 Date of : 11/18/23 Time of : 19:10 Summary Details: 68 year old women with no significant medical history as she has not been to see a medical provider in over 15+ years. apparently it has been a few months and her energy has declined. in July she had a respiratory illness, unknown because she did not have nay testing done, and since then has been less energetic. She quit smoking for a short time, but picked it back up again. She also used marijuana but no alcohol. She was noted to be hypotensive and had cool lower extremities. Vascular surgeon was notified of this and aorta CTA showed femoral artery occlusion.Chest Ct showed large left upper lobe mass invading the mediastinum with additional nodules in the left and right upper lobes, linear tree-in-bud nodularity inferior to the dominant mass concerning for lymphangitic spread. Findings also consistent with solid organ metastasis including innumerable hepatic lesions, bilateral adrenal masses and splenic lesions. She was noted to be hypothermic, tachycardic and hypotensive. Treatment was initially started with antibiotics, IV fluids but after all diagnostic imaging studies returned it was found that the patient likely has severe malignancy. The family decided that they wanted the patient to be hospice/comfort measures only. The patient somnolent during the interview with her daughter and . The plan will be to admit patient for comfort measures only, supportive care. Patient admitted for nausea and vomiting. Had not seen a primary care physician in more than 15 years with history of cigarette smoking. 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 Family including patient's daughter and spouse decided to make her comfort measures only. Pronouncement note as per arlet I was called to patient's bedside to pronounce the patient. No spontaneous movements were present. There was no response to verbal or tactile stimulus. Pupils were mid dilated and fixed. No breath sounds were appreciated over either lung field. No carotid pulses were palpable. No heart sounds were auscultated over entire precordium. Patient was on comfort measures only. Patient pronounced on 11/18/2023 at 19:10. Condolences offered to family members at bedside Additional Data Attending physician: Chantale Griffin HEALTH DATA ADMINISTRATOR
== END 2023-11-18 20:18 | disposition expired | DRG 951 ==
LOC: HO.ED 15:21 → HO.EDOVER 16:41 → HO.S3 16:45
PROVIDERS: Admitting Provider Nurse Practitioner Acute Care; Emergency Provider Student in an Organized Health Care Education/Training Program; Visit Provider Nurse Practitioner Acute Care
DX: Z51.5 Encounter for palliative care (principal); C34.92 Malignant neoplasm of unspecified part of left bronchus or lung; C34.91 Malignant neoplasm of unspecified part of right bronchus or lung; C77.8 Secondary and unspecified malignant neoplasm of lymph nodes of multiple regions; C22.9 Malignant neoplasm of liver, not specified as primary or secondary; C26.1 Malignant neoplasm of spleen; I95.9 Hypotension, unspecified; F17.210 Nicotine dependence, cigarettes, uncomplicated; I77.1 Stricture of artery; Z20.822 Contact with and (suspected) exposure to COVID-19; Z03.818 Encounter for observation for suspected exposure to other biological agents ruled out
CPT/HCPCS: 0241U; 36415; 71045; 71275; 75635; 80053; 81001; 82803; 83605; 83735; 83880; 84484; 85025; 85379; 85610; 85730; 86850; 86900; 86901; 87040; 92950; 93005; 96361; 96365; 96375; 96376; 99285; J0692; J1170; J2060; J2405; J3010; Q9967

== ENCOUNTER → 2023-11-18 11:07 | Outpatient (BNV) | payer MEDICARE, SELFPAY | PROVIDERS: Admitting Provider Nurse Practitioner Acute Care; Emergency Provider Student in an Organized Health Care Education/Training Program; Visit Provider Internal Medicine Cardiovascular Disease | DX: R00.0 Tachycardia, unspecified (principal); I49.3 Ventricular premature depolarization | CPT/HCPCS: 93010 ==

== ENCOUNTER → 2023-11-18 16:22 | Outpatient (BNV) | payer MEDICARE, SELFPAY | PROVIDERS: Admitting Provider Nurse Practitioner Acute Care; Emergency Provider Student in an Organized Health Care Education/Training Program; Visit Provider Nurse Practitioner Acute Care | DX: I95.9 Hypotension, unspecified (principal); R91.8 Other nonspecific abnormal finding of lung field | CPT/HCPCS: 99239 ==